=== PATIENT | male | born 1985 | race Hispanic/Latino ===

== ENCOUNTER 2017-03-01 20:44 | Emergency (ER) | payer OTHER ==
[2017-03-01 20:51] VITALS: BP 150/88; PULSE 80; RESP 18; TEMP 98.1; O2SAT 99
[2017-03-01] MEDS ORDERED: TDAP Vaccine 0.5 mL Syr IM ONE (20:52)
[2017-03-01] MEDS ORDERED: Lidocaine 1% Inj (20ml) ONE (20:54)
--- NOTE | 2017-03-01 21:37 | ED PDOC ---
Upper Extremity Pain/Injury Chief Complaint (Provider): Right finger injury History Per: Patient History/Exam Limitations: no limitations Onset/Duration Of Symptoms: Sudden Onset Current Symptoms Are (Timing): Still Present Quality: "Pain" Additional Complaint(s): Bertrand Montez is a 31 y/o male presenting to the ER on 03/01/2017 for a medical evaluation. Patient reports sustaining an injury to the anterior portion of his right index finger after getting a fishing hook stuck to it. Last tetanus shot is unknown. <Sonia Nelson - Last Filed: 03/01/17 21:34> <Jonnie Joseph - Last Filed: 03/09/17 11:22> Time Seen by Provider: 03/01/17 20:51 Chief Complaint (Nursing): Abnormal Skin Integrity Past Medical History Reviewed: Historical Data, Nursing Documentation, Vital Signs Vital Signs: Last Vital Signs Temp 98.1 F 03/01/17 20:48 Pulse 80 03/01/17 20:48 Resp 18 03/01/17 20:48 BP 150/88 03/01/17 20:48 Pulse Ox 99 03/01/17 20:48 - Medical History PMH: No Chronic Diseases - Surgical History Surgical History: No Surg Hx - Family History Family History: States: Unknown Family Hx - Social History Current smoker - smoking cessation education provided: No Alcohol: Social <Sonia Nelson - Last Filed: 03/01/17 21:34> Vital Signs: Last Vital Signs Temp 98.1 F 03/01/17 20:48 Pulse 80 03/01/17 20:48 Resp 18 03/01/17 20:48 BP 150/88 03/01/17 20:48 Pulse Ox 99 03/01/17 21:40 <Jonnie Joseph - Last Filed: 03/09/17 11:22> - Home Medications Home Medications: Ambulatory Orders Medication Instructions Recorded Sulfamethoxazole/Trimethoprim 1 tab PO BID #14 tab 03/01/17 [Bactrim DS 800 mg-160 mg] - Allergies Allergies/Adverse Reactions: Allergies Allergy/AdvReac Type Severity Reaction Status Date / Time Penicillins Allergy RASH Verified 03/01/17 20:48 Review of Systems ROS Statement: Except As Marked, All Systems Reviewed And Found Negative Musculoskeletal: Positive for: Hand Pain Neurological: Negative for: Weakness, Numbness <Sonia Nelson - Last Filed: 03/01/17 21:34> Physical Exam - Reviewed Nursing Documentation Reviewed: Yes Vital Signs Reviewed: Yes - Physical Exam Appears: Positive for: Non-toxic, No Acute Distress Head Exam: Positive for: ATRAUMATIC, NORMOCEPHALIC Skin: Positive for: Normal Color. Negative for: Rash Eye Exam: Positive for: Normal appearance Neck: Positive for: Normal Extremity: Positive for: Normal ROM. Negative for: Tenderness, Deformity, Swelling Neurologic/Psych: Positive for: Alert, Oriented. Negative for: Motor/Sensory Deficits <Sonia Nelson - Last Filed: 03/01/17 21:34> - ECG O2 Sat by Pulse Oximetry: 99 <Sonia Nelson - Last Filed: 03/01/17 21:34> Medical Decision Making Medical Decision Makin:51 Initial Impression- 31 y/o male with injury to right index finger Attempt to remove fishing hook was made. After the first attempt, which was unsuccessful, a small incision with a #11 blade above the cherry of the hook was made. Hook was able to be pulled out in a sterile procedure. TDAP vaccine was also given. Pt will be discharged routinely. Documented by Claudia Lopez, acting as a scribe for Sonia Nelson PA-C All medical record entries made by the Scribe were at my direction and personally dictated by me. I have reviewed the chart and agree that the record accurately reflects my personal performance of the history, physical exam, medical decision making, and the department course for this patient. I have also personally directed, reviewed, and agree with the discharge instructions and disposition. <Sonia Nelson - Last Filed: 03/01/17 21:34> Disposition <Sonia Nelson - Last Filed: 03/01/17 21:34> - Disposition Disposition Time: 22:30 <Jonnie Joseph - Last Filed: 03/09/17 11:22> - Clinical Impression Clinical Impression: Fish hook injury of finger of right hand, Tetanus toxoid vaccination administered at current visit - Disposition Condition: STABLE Prescriptions: Sulfamethoxazole/Trimethoprim [Bactrim DS 800 mg-160 mg] 1 tab PO BID #14 tab Instructions: Puncture Wound (ED)
== END 2017-03-01 21:52 | disposition home or self-care (01) ==
LOC: H.ER 20:44
DX: S60.450A Superficial foreign body of right index finger, initial encounter (principal); W45.0XXA Nail entering through skin, initial encounter; Y92.89 Other specified places as the place of occurrence of the external cause